=== PATIENT | male | born 1995 | race Caucasian/White ===

== ENCOUNTER 2021-06-09 16:50 | Emergency (ER) | payer OTHER ==
[2021-06-09] MEDS ORDERED: MOTRIN600 MG PO (19:25)
[2021-06-09] MEDS ORDERED: CYCLOBENZAPRINE10 MG PO (19:25)
== END 2021-06-09 19:34 | disposition home or self-care (01) ==
LOC: FER 16:50
DX: S16.1XXA Strain of muscle, fascia and tendon at neck level, initial encounter (principal); S29.012A Strain of muscle and tendon of back wall of thorax, initial encounter; M25.512 Pain in left shoulder; V49.00XA Driver injured in collision with unspecified motor vehicles in nontraffic accident, initial encounter; Y92.410 Unspecified street and highway as the place of occurrence of the external cause
CPT/HCPCS: 99283